=== PATIENT | female | born 1970 | race Caucasian/White ===

== ENCOUNTER 2025-02-24 05:35 | Emergency (ER) | payer OTHER, MEDICAID ==
[~2025-02-24] VITALS: Ht 162.6 cm; Wt 68.0 kg
[~2025-02-24 05:35] MED LIST: AMLO10TA80 PO; CLON0.1T PO; LOSA50TA41 PO; METO25TA6 PO
[2025-02-24 05:42] VITALS: O2SAT 100
[2025-02-24 06:24] VITALS: BP 137/89; PULSE 72; RESP 18; TEMP 36.8; O2SAT 100
== END 2025-02-24 06:28 | disposition home or self-care (01) ==
LOC: ER 05:35
DX: F41.9 Anxiety disorder, unspecified (principal); I10 Essential (primary) hypertension; Z79.899 Other long term (current) drug therapy; Z88.1 Allergy status to other antibiotic agents; Z88.2 Allergy status to sulfonamides
CPT/HCPCS: 99282